=== PATIENT | male | born 1965 | race Asian ===

== ENCOUNTER 2017-02-28 09:49 | Emergency (ER) | payer OTHER ==
[2017-02-28 09:56] VITALS: BP 172/110
--- NOTE | 2017-02-28 11:04 | UC ---
Hypertension HPI - HPI Summary HPI Summary: Patient presents with asymptomatic HTN, he states he bought a BP machine yesterday and took his BP and it was elevated. He reports no other symtpoms or concerns at this visit. He notes that he is worried because his father has a history of stroke. - History of Current Complaint Chief Complaint: UCGeneralIllness Stated Complaint: HIGH BLOOD PRESSURE Time Seen by Provider: 02/28/17 10:33 Hx Obtained From: Patient Aggravating Factor(s): Nothing Alleviating Factor(s): Nothing Associated Signs And Symptoms: Positive: Negative - Risk Factors Cardiac Risk Factors: Family History - Allergies/Home Medications Allergies/Adverse Reactions: Allergies Allergy/AdvReac Type Severity Reaction Status Date / Time No Known Allergies Allergy Verified 02/28/17 09:56 Home Medications: Home Medications Cholecalciferol [Vitamin D] 1,000 unit PO 02/28/17 [History] [place]-3 Fatty Acids [Fish Oil] 1,000 mg PO 02/28/17 [History] PMH/Surg Hx/FS Hx/Imm Hx Previously Healthy: Yes - Surgical History Surgical History: Yes Surgery Procedure, Year, and Place: [facility] - Family History Known Family History: Positive: Hypertension, Other - stroke - Social History Occupation: Employed Full-time Lives: Alone Alcohol Use: Rare Substance Use Type: None Smoking Status (MU): Never Smoked Tobacco Review of Systems All Other Systems Reviewed And Are Negative: Yes Physical Exam Triage Information Reviewed: Yes Appearance: Well-Appearing Vital Signs: Initial Vital Signs Temp 97.7 F 02/28/17 09:53 Pulse 77 02/28/17 09:53 Resp 18 02/28/17 09:53 BP 172/110 02/28/17 09:53 Pulse Ox 100 02/28/17 09:53 Vital Signs Reviewed: Yes Eye Exam: Normal ENT Exam: Normal Neck exam: Normal Respiratory Exam: Normal Cardiovascular Exam: Normal Abdominal Exam: Normal Musculoskeletal Exam: Normal Neurological Exam: Normal Hypertension Course/Dx - Course Course Of Treatment: Patient presents with one day recordin of elevated BP, today in the clinic his BP were 172/110. He has a normal examination. I contacted 's office and spoke to Karla the nurse to discuss the patients BP, and they can see the patient this week. I recommend that he take his [employer] twice daily and record those numbers and follow up with PCP. It is contraindicated to RX, or lower BP rapidlly and it requires additonal testing, history taking, and close follow up. All of this information was discussed with the patient and he was discussed in stable condition. - Differential Dx/Diagnosis Differential Diagnosis/HQI PQRI: Hypertension Provider Diagnoses: htn Discharge - Discharge Plan Condition: Stable Disposition: HOME Patient Education Materials: Chronic Hypertension (ED) Referrals: Marco Antonio Wood MD [Medical Doctor] - Truong Rivas MD [Primary Care Provider] - Additional Instructions: You will need to take your blood pressure twice daily at the same time every day , record those numbers and take them with you when you schedule an appointment with Dr. Wood.
== END 2017-02-28 10:56 | disposition home or self-care (01) ==
LOC: UCEAST 09:49
DX: I10 Essential (primary) hypertension (principal)
CPT/HCPCS: 99201; G0463